=== PATIENT | male | born 1960 | race Hispanic/Latino ===

== ENCOUNTER 2020-12-11 07:46 | Observation (INO) | payer OTHER ==
[~2020-12-11] VITALS: Ht 170.2 cm; Wt 101.6 kg
[~2020-12-11 07:46] MED LIST: AMLODIPINE BESY10 MG PO; ASPIR 8181 MG; ESIDRIX25 MG PO; INDERAL XL80 MG PO; LOSARTAN POTASS25 MG; METFORMIN HCL500 MG PO; Z.1.VERAPAMIL ER240 PO; ZESTRIL10 MG PO
[2020-12-11] MEDS ORDERED: ROPIVACAINE 246.25 MG, EPINEPHRINE HCL 1:1000 1ML 0.5 MG, CLONIDINE HCL 0.08 MG in SODI... INJ ONE (08:00)
[2020-12-11] MEDS ORDERED: GABAPENTIN 300 MG CAP ONE (08:54)
[2020-12-11] MEDS ORDERED: DEXAMETHASONE SOD PHOS 10 MG/1 ML VIAL ONE (08:54)
[2020-12-11] MEDS ORDERED: CEFAZOLIN SOD 1 GM/NS 50ML 100 ML IV ONE (08:54)
[2020-12-11] MEDS ORDERED: VANCOMYCIN HCL 1,000 MG ONE (09:42)
[2020-12-11] MEDS ORDERED: TRANEXAMIC ACID 1,000 MG/10 ML ML ONE (09:42)
[2020-12-11] MEDS ORDERED: SODIUM CHLORIDE 0.9% 500ML 500 ML ONE (09:42)
[2020-12-11] MEDS ORDERED: ZOLPIDEM TARTRATE 5 MG TAB PO PRN (12:00)
[2020-12-11] MEDS ORDERED: HYDROCODONE/APAP 5MG-325MG TAB PO PRN (12:00)
[2020-12-11] MEDS ORDERED: ONDANSETRON HCL INJ 2MG/ML 2ML 2 MG/ML VIAL IV PRN (12:00)
[2020-12-11] MEDS ORDERED: ACETAMINOPHEN 650 MG SUPP PR PRN (12:00)
[2020-12-11] MEDS ORDERED: KETOROLAC TROMETHAMINE 30 MG/ML VIAL IV PRN (12:00)
[2020-12-11] MEDS ORDERED: DOCUSATE SODIUM 100 MG CAP PO PRN (12:00)
[2020-12-11] MEDS ORDERED: DIPHENHYDRAMINE HCL INJ 50 MG/ML VIAL IV PRN (12:00)
[2020-12-11] MEDS ORDERED: FENTANYL CITRATE/PF 100MCG/2 ML INJ ONE ×2 (12:29→13:06)
[2020-12-11] MEDS ORDERED: MIDAZOLAM HCL 2 MG/2 ML VIAL ONE (13:06)
[2020-12-11] MEDS ORDERED: GLYCOPYRROLATE INJ 0.2 MG/ML VIAL ONE (13:20)
[2020-12-11] MEDS ORDERED: ONDANSETRON HCL INJ 2MG/ML 2ML 2 MG/ML VIAL ONE (13:20)
[2020-12-11] MEDS ORDERED: LIDOCAINE HCL 2% JELLY 5 ML TUBE ONE (13:20)
[2020-12-11] MEDS ORDERED: LIDOCAINE HCL 2% LOCAL INJ 5 ML SDV VIAL INJ ONE (13:20)
[2020-12-11] MEDS ORDERED: PROPOFOL IV EMULSION 10 MG/ML 20 ML VIAL ONE (13:20)
[2020-12-11] MEDS ORDERED: SEVOFLURANE INHAL SOLN 250 ML PEN BTL ONE (13:20)
[2020-12-11] MEDS ORDERED: LIDOCAINE 2%/ EPINEPHRINE 20ML MDV ONE (13:25)
[2020-12-11] MEDS ORDERED: ROPIVACAINE 0.5% 5 MG/ML 30 ML SDV ONE (13:25)
[2020-12-11 13:28] VITALS: BP 129/57
[2020-12-11 13:49] VITALS: BP 129/57
[2020-12-11 13:53] VITALS: BP 129/57
[2020-12-11] MEDS: CEFAZOLIN SOD 1 GM/NS 50ML 50 ML IV SCH ×2 (15:16→21:42)
[2020-12-11] MEDS: SODIUM CHLORIDE 0.9% 1000ML 1,000 ML IV SCH ×2 (15:16→22:00)
[2020-12-11] MEDS: HYDROCODONE/APAP 7.5MG-325MG 1 EA TAB PO PRN ×2 (15:21→22:45)
[2020-12-11] MEDS: ASPIRIN 325 MG TAB PO SCH (16:22)
[2020-12-11 16:34] VITALS: BP 126/80
[2020-12-11] MEDS ORDERED: CELECOXIB 100 MG CAP PO SCH (17:00)
[2020-12-11 20:00] VITALS: BP 118/75
[2020-12-12] VITALS (7 sets, daily range): BP systolic 107–143; BP diastolic 64–92
[2020-12-12] MEDS: CEFAZOLIN SOD 1 GM/NS 50ML 50 ML IV SCH (05:17)
[2020-12-12 05:20] LABS: BASOPHILS % 0.1 % (0.0-1.0); EOSINOPHILS % 0.1 % (0.0-6.0); HEMATOCRIT 42.5 % (38.2-49.6); HEMOGLOBIN 14.8 g/dL (14.0-18.0); LYMPHOCYTES # (AUTO) 1.7 (1.0-3.2); LYMPHOCYTES % 13.6 % (18.0-39.1); MEAN CORPUSCULAR HEMOGLOBIN 31.4 pg (28-32); MEAN CORPUSCULAR HGB CONC 34.8 g/dL (31-35); MONOCYTES # (AUTO) 1.4 (0.2-0.8); MONOCYTES % 10.8 % (4.4-11.3); NEUTROPHILS # (AUTO) 9.5 (2.1-6.9); NEUTROPHILS % 75.1 % (38.7-80.0); PLATELET COUNT 256 x10e3/uL (140-360); RED BLOOD COUNT 4.72 x10e6/uL (4.3-5.7); RED CELL DISTRIBUTION WIDTH 11.9 % (11.7-14.4)
[2020-12-12 05:44] LABS: ANION GAP 15.4 mmol/L (8-16); BLOOD UREA NITROGEN 16 mg/dL (7-26); BUN/CREATININE RATIO 21 (6-25); CALCIUM 8.4 mg/dL (8.4-10.2); CARBON DIOXIDE 25 mmol/L (22-29); CHLORIDE 98 mmol/L (98-107); CREATININE, SERUM 0.78 mg/dL (0.72-1.25); EST GLOMERULAR FILTRATION RATE > 60 ML/MIN (60-); GLUCOSE 175 mg/dL (74-118); POTASSIUM 3.4 mmol/L (3.5-5.1); SODIUM 135 mmol/L (136-145)
[2020-12-12] MEDS: SODIUM CHLORIDE 0.9% 1000ML 1,000 ML IV SCH (08:00)
[2020-12-12] MEDS: HYDROCODONE/APAP 7.5MG-325MG 1 EA TAB PO PRN ×2 (08:38→15:37)
[2020-12-12] MEDS: ASPIRIN 325 MG TAB PO SCH ×2 (08:39→16:36)
[2020-12-12] MEDS: METFORMIN HCL 500 MG TAB PO SCH ×2 (08:39→16:36)
[2020-12-12] MEDS ORDERED: POTASSIUM CHLORIDE 10MEQ EA PO ONE (08:55)
[2020-12-12] MEDS ORDERED: AMLODIPINE BESYLATE 10 MG TAB PO SCH (09:00)
[2020-12-12] MEDS ORDERED: HYDROCHLOROTHIAZIDE 25 MG TAB PO SCH (09:00)
[2020-12-12] MEDS ORDERED: PROPRANOLOL HCL 40 MG PO SCH (09:00)
[2020-12-12] MEDS ORDERED: LISINOPRIL 10 MG TAB PO SCH (09:00)
[2020-12-12] MEDS ORDERED: FUROSEMIDE INJ 10 MG/ML 4 ML VIAL IV ONE (10:00)
[2020-12-12] MEDS ORDERED: ACETAMINOPHEN 1000 MG/100 ML IV PRN (12:00)
[2020-12-12] MEDS ORDERED: ONDANSETRON HCL 4 MG ORAL DISINTEGRATING TAB PO PRN (13:00)
[2020-12-12] MEDS ORDERED: IOPAMIDOL 370 MG/ML 200 ML INFUS..BTL INJ ONE (18:32)
[2020-12-12] MEDS ORDERED: SODIUM CHLORIDE 0.9% 50ML 50 ML ONE (18:32)
== END 2020-12-12 19:07 | disposition home health service (06) ==
LOC: OR 07:46 → PACU V 11:59 → MED/SURG 13:09
PROVIDERS: ADMIT Specialist; ATTEND Specialist
DX: M17.0 Bilateral primary osteoarthritis of knee (principal); E78.00 Pure hypercholesterolemia, unspecified; Z20.822 Contact with and (suspected) exposure to COVID-19; E11.9 Type 2 diabetes mellitus without complications; Z01.818 Encounter for other preprocedural examination; E66.9 Obesity, unspecified; Z68.35 Body mass index [BMI] 35.0-35.9, adult; I11.9 Hypertensive heart disease without heart failure; E87.6 Hypokalemia; Z79.4 Long term (current) use of insulin
CPT/HCPCS: 36415; 71045; 71260; 80048; 82948; 84484; 85025; 85379; 86920; 93005; 93306; C1713; C1776; G0378; J0171; J0690; J1100; J1940; J2001; J2250; J2405; J2795; J3010; J3370; J7030; J7040; Q9967; U0002

== ENCOUNTER 2021-02-12 08:26 | Observation (INO) | payer OTHER ==
[2021-02-08 10:15] LABS: BASOPHILS % 0.3 % (0.0-1.0); EOSINOPHILS # (AUTO) 0.1 (0.0-0.4); EOSINOPHILS % 1.7 % (0.0-6.0); HEMOGLOBIN 14.7 g/dL (14.0-18.0); LYMPHOCYTES # (AUTO) 1.2 (1.0-3.2); LYMPHOCYTES % 18.4 % (18.0-39.1); MEAN CORPUSCULAR HEMOGLOBIN 31.6 pg (28-32); MEAN CORPUSCULAR HGB CONC 34.2 g/dL (31-35); MEAN CORPUSCULAR VOLUME 92.5 fL (81-99); MONOCYTES # (AUTO) 0.4 (0.2-0.8); MONOCYTES % 6.7 % (4.4-11.3); NEUTROPHILS # (AUTO) 4.6 (2.1-6.9); NEUTROPHILS % 72.7 % (38.7-80.0); PLATELET COUNT 224 x10e3/uL (140-360); RED BLOOD COUNT 4.65 x10e6/uL (4.3-5.7); RED CELL DISTRIBUTION WIDTH 12.3 % (11.7-14.4)
[2021-02-08 10:35] LABS: ANION GAP 13.8 mmol/L (8-16); BLOOD UREA NITROGEN 17 mg/dL (7-26); BUN/CREATININE RATIO 21 (6-25); CALCIUM 8.6 mg/dL (8.4-10.2); CARBON DIOXIDE 28 mmol/L (22-29); CHLORIDE 101 mmol/L (98-107); CREATININE, SERUM 0.82 mg/dL (0.72-1.25); EST GLOMERULAR FILTRATION RATE > 60 ML/MIN (60-); GLUCOSE 264 mg/dL (74-118); POTASSIUM 3.8 mmol/L (3.5-5.1); SODIUM 139 mmol/L (136-145)
[~2021-02-12] VITALS: Ht 170.2 cm; Wt 103.4 kg
[~2021-02-12 08:26] MED LIST changes: +INDOCIN25 MG/5 ML PO; +INDOCIN50 MG PO; +ROPIVACAINE 246.25 MG, EPINEPHRINE HCL 1:1000 1ML 0.5 MG, CLONIDINE HCL 0.08 MG in SODI... INJ ONE
[2021-02-12] MEDS ORDERED: VANCOMYCIN HCL 1,000 MG ONE (09:39)
[2021-02-12] MEDS ORDERED: TRANEXAMIC ACID 1,000 MG/10 ML ML ONE (09:39)
[2021-02-12] MEDS ORDERED: SODIUM CHLORIDE 0.9% 500ML 500 ML ONE (09:39)
[2021-02-12] MEDS ORDERED: CELECOXIB 200 MG CAP ONE (09:50)
[2021-02-12] MEDS ORDERED: CEFAZOLIN SOD 1 GM/NS 50ML 100 ML IV ONE (09:51)
[2021-02-12] MEDS ORDERED: DEXAMETHASONE SOD PHOS 10 MG/1 ML VIAL ONE (09:51)
[2021-02-12] MEDS ORDERED: GABAPENTIN 300 MG CAP ONE (09:51)
[2021-02-12] MEDS ORDERED: ASPIRIN81 MG PO (09:58)
[2021-02-12] MEDS ORDERED: ACETAMINOPHEN 1000 MG/100 ML 100 ML IV ONE (10:25)
[2021-02-12] MEDS ORDERED: KETOROLAC TROMETHAMINE 30 MG/ML VIAL IV PRN (12:30)
[2021-02-12] MEDS ORDERED: DOCUSATE SODIUM 100 MG CAP PO PRN (12:30)
[2021-02-12] MEDS ORDERED: HYDROCODONE/APAP 7.5MG-325MG 1 EA TAB PO PRN (12:30)
[2021-02-12] MEDS ORDERED: HYDROCODONE/APAP 5MG-325MG TAB PO PRN (12:30)
[2021-02-12] MEDS: SODIUM CHLORIDE 0.9% 1000ML 1,000 ML IV SCH ×2 (12:30→22:30)
[2021-02-12] MEDS ORDERED: ONDANSETRON HCL INJ 2MG/ML 2ML 2 MG/ML VIAL IV PRN (12:30)
[2021-02-12] MEDS ORDERED: DIPHENHYDRAMINE HCL INJ 50 MG/ML VIAL IV PRN (12:30)
[2021-02-12] MEDS ORDERED: ACETAMINOPHEN 650 MG SUPP PR PRN (12:30)
[2021-02-12] MEDS ORDERED: ONDANSETRON HCL INJ 2MG/ML 2ML 2 MG/ML VIAL ONE (12:47)
[2021-02-12] MEDS ORDERED: PROPOFOL IV EMULSION 10 MG/ML 20 ML VIAL ONE (12:47)
[2021-02-12] MEDS ORDERED: SEVOFLURANE INHAL SOLN 250 ML PEN BTL ONE (12:47)
[2021-02-12] MEDS ORDERED: ROPIVACAINE 0.5% 5 MG/ML 30 ML SDV ONE (12:57)
[2021-02-12] MEDS ORDERED: LIDOCAINE 2% /EPINEPHRINE 20 ML SDV INJ ONE (12:57)
[2021-02-12] MEDS ORDERED: MIDAZOLAM HCL 2 MG/2 ML VIAL ONE (13:00)
[2021-02-12] MEDS ORDERED: FENTANYL CITRATE/PF 100MCG/2 ML INJ ONE (13:00)
[2021-02-12] MEDS ORDERED: MEPERIDINE HCL INJ 25 MG/ML VIAL ONE (13:02)
[2021-02-12 15:35] VITALS: BP 128/76
[2021-02-12 15:41] VITALS: BP 128/76
[2021-02-12 15:50] VITALS: BP 119/84
[2021-02-12] MEDS ORDERED: ACETAMINOPHEN 1000 MG/100 ML IV PRN (17:00)
[2021-02-12] MEDS: ASPIRIN 325 MG TAB PO SCH (17:05)
[2021-02-12] MEDS: CELECOXIB 100 MG CAP PO SCH (17:05)
[2021-02-12 20:00] VITALS: BP_SYST 107; BP_SYST 119; BP_DIAS 71; BP_DIAS 84
[2021-02-12] MEDS: CEFAZOLIN SOD 1 GM/NS 50ML 50 ML IV SCH (20:00)
[2021-02-12 21:00] VITALS: BP 119/84
[2021-02-12] MEDS ORDERED: ZOLPIDEM TARTRATE 5 MG TAB PO PRN (21:00)
[2021-02-13] VITALS: BP 94/64
[2021-02-13 04:00] VITALS: BP 85/62
[2021-02-13] MEDS: CEFAZOLIN SOD 1 GM/NS 50ML 50 ML IV SCH ×2 (04:49→11:00)
[2021-02-13 06:30] LABS: HEMATOCRIT 36.7 % (38.2-49.6); HEMOGLOBIN 12.7 g/dL (14.0-18.0)
[2021-02-13 07:55] VITALS: BP 109/65
[2021-02-13 08:00] VITALS: BP 109/65
[2021-02-13] MEDS: ASPIRIN 325 MG TAB PO SCH (08:02)
[2021-02-13] MEDS: CELECOXIB 100 MG CAP PO SCH (08:02)
[2021-02-13 12:13] VITALS: BP 122/66
== END 2021-02-13 13:05 | disposition home or self-care (01) ==
LOC: OR 08:26 → PACU V 12:21 → MED/SURG 15:23
PROVIDERS: ADMIT Specialist; ATTEND Specialist
DX: M17.12 Unilateral primary osteoarthritis, left knee (principal); Z96.651 Presence of right artificial knee joint; I11.0 Hypertensive heart disease with heart failure; I50.32 Chronic diastolic (congestive) heart failure; E78.00 Pure hypercholesterolemia, unspecified; N28.9 Disorder of kidney and ureter, unspecified; E11.9 Type 2 diabetes mellitus without complications; Z79.82 Long term (current) use of aspirin; Z88.8 Allergy status to other drugs, medicaments and biological substances; Z79.84 Long term (current) use of oral hypoglycemic drugs; E66.9 Obesity, unspecified; Z68.35 Body mass index [BMI] 35.0-35.9, adult; Z01.812 Encounter for preprocedural laboratory examination; Z20.822 Contact with and (suspected) exposure to COVID-19
CPT/HCPCS: 27447; 36415 ×3; 73560; 80048; 82948 ×2; 85014; 85018; 85025; 86850; 86900; 86920; 97116 ×2; 97161; 97530 ×2; C1713; C1776 ×2; G0378 ×2; J0131; J0171; J0690 ×2; J1100; J2001; J2250; J2405 ×2; J2704; J2795; J3010; J3370; J7030; J7040; U0002; J1200; J2175

== ENCOUNTER 2025-03-02 21:51 | Emergency (ER) | payer MEDICARE, OTHER ==
[~2025-03-02] VITALS: Ht 170.2 cm; Wt 103.4 kg
[~2025-03-02 21:51] MED LIST changes: +ASPIRIN81 MG PO; -ROPIVACAINE 246.25 MG, EPINEPHRINE HCL 1:1000 1ML 0.5 MG, CLONIDINE HCL 0.08 MG in SODI... INJ ONE
[2025-03-02 22:08] VITALS: TEMP 98.3
[2025-03-02] MEDS: KETOROLAC TROMETHAMINE 60 MG/2 ML VIAL IM ONE (23:45)
[2025-03-03] MEDS ORDERED: NAPROSYN500 MG PO (01:04)
[2025-03-03 01:21] VITALS: PULSE 59; RESP 16; O2SAT 95
[2025-03-03] MEDS ORDERED: MELOXICAM7.5 MG PO (01:25)
== END 2025-03-03 01:22 | disposition home or self-care (01) ==
LOC: ER 22:57
DX: M25.551 Pain in right hip (principal); M16.51 Unilateral post-traumatic osteoarthritis, right hip; I10 Essential (primary) hypertension; E11.9 Type 2 diabetes mellitus without complications; E66.9 Obesity, unspecified
CPT/HCPCS: 73502; 99283; J1885